=== PATIENT | female | born 1970 | race Caucasian/White ===

== ENCOUNTER 2017-03-23 11:41 | Emergency (ER) | payer SELFPAY ==
[2017-03-23 12:31] LABS: ABSOLUTE BASOPHILS # (AUTO) 0.1 10^3/uL (0.0-0.2); ABSOLUTE EOSINOPHILS # (AUTO) 0.2 10^3/uL (0.0-0.6); ABSOLUTE LYMPHOCYTES (AUTO) 2.5 10^3/uL (0.5-4.7); ABSOLUTE MONOCYTES (AUTO) 0.6 10^3/uL (0.1-1.4); ABSOLUTE NEUT (AUTO) 8.7 10^3/uL (1.7-8.2); BASOPHILS % (AUTO) 0.4 % (0-2); EOSINOPHILS % (AUTO) 1.5 % (0-6); HEMATOCRIT 36.6 % (36.0-47.0); HEMOGLOBIN 11.8 g/dL (12.0-15.5); HGB HCT DIFFERENCE -1.2; LYMPHOCYTES % (AUTO) 20.5 % (13-45); MEAN CORPUSCULAR HEMOGLOBIN 26.4 pg (27.0-33.4); MEAN CORPUSCULAR HGB CONC 32.2 g/dL (32.0-36.0); MEAN CORPUSCULAR VOLUME 82 fl (80-97); MONOCYTES % (AUTO) 5.3 % (3-13); RED BLOOD COUNT 4.47 10^6/uL (3.72-5.28); SEGMENTED NEUTROPHILS % (AUTO) 72.3 % (42-78); WHITE BLOOD COUNT 12.1 10^3/uL (4.0-10.5)
[2017-03-23 12:37] LABS: PARTIAL THROMBOPLASTIN TIME 27.7 SEC (23.5-35.8); PROTHROMBIN TIME 12.3 SEC (11.4-15.4)
[2017-03-23 12:53] LABS: ANION GAP 18 (5-19); BLOOD UREA NITROGEN 15 mg/dL (7-20); CARBON DIOXIDE 20 mmol/L (22-30); CHLORIDE 104 mmol/L (98-107); CREATININE RESULT 0.79 mg/dL (0.52-1.25); GLUCOSE 94 mg/dL (75-110); SODIUM 141.6 mmol/L (137-145)
[2017-03-23] MEDS ORDERED: NORMAL SALINE 1000 ML 1,000 ML IV ONE (13:09)
--- NOTE | 2017-03-23 14:18 | RADIOLOGY REPORT (SQ) ---
EXAM DESCRIPTION: U/S NON OB PEL W/DOPPLER COMPLETED DATE/TIME: 03/23/2017 1:54 pm REASON FOR STUDY: vaginal bleeding LMP uncertain COMPARISON: 08/15/2016 TECHNIQUE: Dynamic and static grayscale images acquired of the pelvis via transabdominal approach an d recorded on PACS. Additional selected color Doppler and spectral images recorded. LIMITATIONS: None. FINDINGS: UTERUS: Contour normal. No mass. ENDOMETRIAL STRIPE: Thickened. CERVIX: Nabothian cysts are present. RIGHT OVARY: Cysts are present. The largest is 2.6 cm in diameter. RIGHT OVARY DOPPLER: Normal arterial vascular flow without evidence for torsion. LEFT OVARY: Not seen. LEFT OVARY DOPPLER: Normal arterial vascular flow without evidence for torsion. FREE FLUID: None noted. OTHER: No other significant finding. MEASUREMENTS: UTERUS: 11.9 x 9 x 5 cm. ENDOMETRIAL STRIPE: 2.2 cm RIGHT OVARY: 4.4 x 3.2 x 2.7 cm LEFT OVARY: Not seen. IMPRESSION: 1. The endometrium is thickened. 2. There is a 2.6 cm right ovarian cyst. TECHNICAL DOCUMENTATION: JOB ID: [id number]- All Rights Reserved
[2017-03-23] MEDS ORDERED: MEDROXYPROGESTERONE ACET 10 MG TABLET PO ONE (14:39)
[2017-03-23] MEDS ORDERED: MECLIZINE HCL 25 MG TABLET PO ONE (14:47)
[2017-03-23 14:59] LABS: APPEARANCE,URINE CLOUDY; BILIRUBIN,URINE NEGATIVE (NEGATIVE); GLUCOSE, URINE NEGATIVE (NEGATIVE); KETONES,URINE NEGATIVE (NEGATIVE); LEUKOCYTE ESTERASE,URINE NEGATIVE (NEGATIVE); NITRITE,URINE NEGATIVE (NEGATIVE); PROTEIN,URINE 100 mg/dL (NEGATIVE); URINE SPECIFIC GRAVITY 1.014; UROBILINOGEN,URINE NEGATIVE mg/dL (<2.0)
--- NOTE | 2017-03-23 15:07 | ER Document Report ---
ED GI/ - General Chief Complaint: Vaginal Bleeding Stated Complaint: BLEEDING,SHORTNESS OF BREATH Time Seen by Provider: 03/23/17 12:03 TRAVEL OUTSIDE OF THE [place] IN LAST 30 DAYS: No - HPI Patient complains to provider of: Vaginal bleeding Onset: Other - 3 days Timing/Duration: Gradual, Worse - more clots Quality of pain: No pain Pain Level: Denies Vaginal bleeding (Compared to normal period): Heavier, Passing clots LMP: february : 8 Para: 5 Abortions: 3 Sexual history: Active - with Similar symptoms previously: Yes - previous uterine bleeding 08/15 requiring D& C with biopsy Recently seen / treated by doctor: Yes - follows with [facility] - Related Data Allergies/Adverse Reactions: aspirin Adverse Reaction (Verified 03/23/17 11:53) Past Medical History - Social History Smoking Status: Never Smoker Chew tobacco use (# tins/day): No Frequency of alcohol use: None Drug Abuse: None Family History: Other - She reports mother and sister both had history of heavy vaginal bleeding similar to hers which ultimately resulted in hysterectomies Patient has suicidal ideation: No Patient has homicidal ideation: No Pulmonary Medical History: Denies: Hx Asthma Renal/ Medical History: Denies: Hx Peritoneal Dialysis Psychiatric Medical History: Denies: Hx Depression Past Surgical History: Reports: Hx Section Review of Systems - Review of Systems Constitutional: No symptoms reported Cardiovascular: No symptoms reported Respiratory: No symptoms reported Female Genitourinary: See HPI Neurological/Psychological: Other - dizzy Physical Exam - Vital signs Vitals: Temp Pulse Resp BP Pulse Ox 98.3 F 102 H 26 H 118/70 99 03/23/17 11:48 03/23/17 11:48 03/23/17 11:48 03/23/17 11:48 03/23/17 11:48 - Notes Notes: PHYSICAL EXAM GENERAL: Alert, interacts well. HEAD: Normocephalic, atraumatic. Positive sundeep hallpike to the right EYES: Pupils equal, round, and reactive to light. Extraocular movements intact. ENT: Oral mucosa moist, tongue midline. NECK: Full range of motion. Supple. Trachea midline. LUNGS: Clear to auscultation bilaterally, no wheezes, rales, or rhonchi. No respiratory distress. HEART: Regular rate and rhythm. No murmurs, gallops, or rubs. ABDOMEN: Soft, nondistended, nontender. No guarding, rebound, or rigidity.. Bowel sounds present in all 4 quadrants. FEMALE : Normal external exam. No evidence of lesions, lacerations, bruising or vesicles. Speculum exam normal cervix closed. No evidence of vaginal discharge with odor. No evidence of lesions. Moderate dark blood pooling within the vaginal vault. Bimanual exam normal no cervical motion tenderness. No adnexal mass or adnexal tenderness. EXTREMITIES: Moves all 4 extremities spontaneously. No edema, radial and dorsalis pedis pulses 2/4 bilaterally. No cyanosis. NEUROLOGICAL: Alert and oriented x4. Normal speech. PSYCH: Normal affect, normal mood. SKIN: Warm, dry, normal turgor. No rashes or lesions noted. Course - Re-evaluation Re-evalutation: 03/23/17 14:00 Patient is a 46-year-old female hemodynamically stable, no acute distress and afebrile. H&H are stable at 11.8/36.6. Orthostatics stable. Patient received 1 L of saline as well as Antivert with complete resolution of her dizziness. Discussed case with Dr. Cordero who recommends Provera and follow-up with him in the office. After performing a Medical Screening Examination, I estimate there is LOW risk for ACUTE APPENDICITIS, BOWEL OBSTRUCTION, ACUTE CHOLECYSTITIS, PERFORATED DIVERTICULITIS, INCARCERATED HERNIA, PANCREATITIS, PELVIC INFLAMMATORY DISEASE, PERFORATED ULCER, ECTOPIC , or TUBO-OVARIAN ABSCESS, thus I consider the discharge disposition reasonable. Also, there is no evidence or peritonitis , sepsis, or toxicity. I have reevaluated this patient multiple times and no significant life threatening changes are noted. The patient and I have discussed the diagnosis and risks, and we agree with discharging home with close follow-up with the understanding that symptoms and presentations can change. We also discussed returning to the Emergency Department immediately if new or worsening symptoms occur. We have discussed the symptoms which are most concerning (e.g., bloody stool, fever, changing or worsening pain, vomiting) that necessitate immediate return. - Vital Signs Vital signs: Temp Pulse Resp BP Pulse Ox 98.2 F 69 12 106/67 100 03/23/17 16:19 03/23/17 13:06 03/23/17 16:00 03/23/17 16:00 03/23/17 16:00 - Laboratory Result Diagrams: 03/23/17 12:07 03/23/17 12:07 Laboratory results interpreted by me: 03/23/17 03/23/17 03/23/17 12:07 12:07 14:33 WBC 12.1 H Hgb 11.8 L MCH 26.4 L RDW 17.0 H Absolute Neutrophils 8.7 H Carbon Dioxide 20 L Urine Protein 100 H Urine Blood LARGE H - Diagnostic Test Radiology reviewed: Image reviewed, Reports reviewed Discharge - Discharge Clinical Impression: Dysfunctional uterine bleeding Condition: Good Disposition: HOME, SELF-CARE Additional Instructions: VAGINAL BLEEDING: You are having an episode of abnormal bleeding. Causes of abnormal vaginal bleeding can include miscarriage or tubal , tumors such as cancer or benign fibroids, medication effects, or hormone imbalance. Testing can eliminate unsuspected , tumors, or infection as a cause. "Dysfunctional uterine bleeding" is due to hormone imbalance, and is especially common at times when the normal cycle is disturbed -- whether by recent , use of control pills or hormones, or impending menopause. If the bleeding is innocent, most commonly a short course of hormones is given to restore the uterus to normal. Sometimes, the normal menstrual cycle corrects itself naturally. Sometimes , brief hormone therapy, or even a D&C is required. Your physician will advise you. Treatment for anemia may be required if bleeding is severe. You should rest and avoid intercourse until the bleeding is controlled. Call the doctor or return for re-examination if you feel faint, have increasing pain, or have a major increase in the amount of bleeding. NORMAL EXAM AND WORKUP: At this time, except for vaginal bleeding, your examination and workup show no significant abnormality. No significant abnormal physical findings were noted. All laboratory, EKG, and imaging (x-ray, CT scans, ultrasound) studies that were ordered show no significant abnormality. Although your examination and all studies that were ordered showed no significant abnormal finding, there are no examinations and no studies that are 100% accurate. There is always the possibility that some abnormality could exist and not be detected with physical examination or within the limits and capabilities of laboratory and other studies. You should return or follow up as you were instructed on your visit today for further evaluation if your symptoms do not resolve. PROVERA: Provera (medroxyprogesterone) is usually used to stop excessive uterine bleeding or to regulate the periods. Provera is a form of progesterone, the hormone that stimulates the uterus lining to mature during the second half of your cycle. High doses of Provera can usually stop uterine bleeding. It's most useful for the abnormal bleeding that occurs when periods are irregular, such as around menopause. Provera usually isn't helpful for bleeding that occurs after Depo-Provera or Norplant. There is often another heavy "period" when you finish the Provera. Afterwards, the periods usually return to normal within a month or two. Contact your doctor if bleeding becomes more severe, or if you develop abdominal pain, lightheadedness, fever, or other new symptoms. FOLLOW-UP CARE: If you have been referred to a physician for follow-up care, call the physician s office for an appointment as you were instructed or within the next two days. If you experience worsening or a significant change in your symptoms (very heavy bleeding with large clots of blood, passage of tissue, more severe abdominal / pelvic pain or cramping, feeling faint or severe weakness, fever, etc.), notify the physician immediately or return to the Emergency Department at any time for re-evaluation. Prescriptions: Meclizine HCl [Antivert 25 mg Tablet] 25 mg PO TID PRN #21 tablet PRN Reason: Medroxyprogesterone Acet [Provera 10 Mg Tablet] 10 mg PO DAILY #30 tablet Referrals: DANIEL CORDERO MD [Primary Care Provider] - Follow up in 1 week
[2017-03-23 16:05] VITALS: BP 106/67
== END 2017-03-23 16:18 | disposition home or self-care (01) ==
LOC: ER 11:41
DX: N93.8 Other specified abnormal uterine and vaginal bleeding (principal); R06.02 Shortness of breath
CPT/HCPCS: 99285; 96360; 86900; 86901; 36415; 86850; 84702; 85025; 85610; 85730; 80048; 81001; 76856; 93976; J3490; J7030

== ENCOUNTER → 2017-06-06 | Outpatient (CLI) | payer SELFPAY | LOC: HHS 08:55 | DX: Z12.31 Encounter for screening mammogram for malignant neoplasm of breast (principal) ==

== ENCOUNTER 2018-05-26 11:19 | Observation (INO) | payer SELFPAY ==
--- NOTE | 2018-05-26 12:14 | ER Document Report ---
ED Medical Screen (RME) - General Chief Complaint: Vaginal Bleeding Stated Complaint: VAGINAL BLEEDING Time Seen by Provider: 05/26/18 12:08 TRAVEL OUTSIDE OF THE [place] IN LAST 30 DAYS: No - HPI Patient complains to provider of: vaginal bleeding Onset: Other - 47-year-old female presents for evaluation of vaginal bleeding over the last 20+ days. She has had episodes of persistent vaginal bleeding in the past of an unknown etiology does not have known fibroids has had a ablation in the past as well as D&C with minimal improvement in her symptoms. She is lost insurance and as a result has not been able to see a powder core tester. Does not take any blood thinning medications has no known bleeding problems. Denies any trauma to the abdomen or pelvis generally has regular menses in between these episodes. Has tried Provera in the past which only modestly improved her symptoms. - Related Data Allergies/Adverse Reactions: aspirin Adverse Reaction (Verified 05/26/18 12:11) Past Medical History - Social History Chew tobacco use (# tins/day): No Frequency of alcohol use: None Drug Abuse: None Pulmonary Medical History: Denies: Hx Asthma Renal/ Medical History: Denies: Hx Peritoneal Dialysis Psychiatric Medical History: Denies: Hx Depression Past Surgical History: Reports: Hx Section, Hx Gynecologic Surgery - d& c Physical Exam - Vital signs Vitals: Temp Pulse Resp BP Pulse Ox 99.0 F 83 16 114/54 L 100 05/26/18 11:25 05/26/18 11:25 05/26/18 11:25 05/26/18 11:25 05/26/18 11:25 Course - Re-evaluation Re-evalutation: 05/26/18 12:13 47-year-old female with a history of abnormal uterine bleeding is persistently bled over the last 23 days, has required transfusion in the past. We will obtain type and screen, will obtain chemistry and count. Patient does appear pale. I performed a rapid medical screening examination on this patient, believe she will require some further investigation and evaluation will defer further testing or disposition determination to another provider. - Vital Signs Vital signs: Temp Pulse Resp BP Pulse Ox 99.0 F 83 16 114/54 L 100 05/26/18 11:25 05/26/18 11:25 05/26/18 11:25 05/26/18 11:25 05/26/18 11:25
[2018-05-26 13:04] LABS: HEMATOCRIT 17.7 % (36.0-47.0); MEAN CORPUSCULAR HEMOGLOBIN 18.7 pg (27.0-33.4); MEAN CORPUSCULAR HGB CONC 29.7 g/dL (32.0-36.0); MEAN CORPUSCULAR VOLUME 63 fl (80-97); PLATELET COUNT 359 10^3/uL (150-450); RED BLOOD COUNT 2.81 10^6/uL (3.72-5.28); RED CELL DISTRIBUTION WIDTH 18.2 % (11.5-14.0); WHITE BLOOD COUNT 6.9 10^3/uL (4.0-10.5)
[2018-05-26 13:08] LABS: INTERNATIONAL RATION (INR) 0.94
[2018-05-26 13:09] LABS: PARTIAL THROMBOPLASTIN TIME 23.6 SEC (23.5-35.8)
[2018-05-26 13:14] LABS: BLOOD UREA NITROGEN 9 mg/dL (7-20); CARBON DIOXIDE 22 mmol/L (22-30); CHLORIDE 106 mmol/L (98-107); GLUCOSE 91 mg/dL (75-110); SODIUM 139.4 mmol/L (137-145)
[2018-05-26 13:15] LABS: ALANINE AMINOTRANSFERASE 19 U/L (9-52); ALBUMIN 3.9 g/dL (3.5-5.0); ALKALINE PHOSPHATASE 64 U/L (38-126); ANION GAP 11 (5-19); ASPARTATE AMINO TRANSFERASE 19 U/L (14-36); BILIRUBIN,TOTAL 0.4 mg/dL (0.2-1.3)
[2018-05-26 13:16] LABS: HEMOGLOBIN 5.3 g/dL (12.0-15.5)
[2018-05-26 13:35] LABS: ABSOLUTE LYMPHOCYTES# (MANUAL) 1.9 10^3/uL (0.5-4.7); ABSOLUTE MONOCYTES # (MANUAL) 0.3 10^3/uL (0.1-1.4); ABSOLUTE NEUTROPHILS# (MANUAL) 4.6 10^3/uL (1.7-8.2); BASOPHILS % (MANUAL) 2 % (0-2); EOSINOPHILS % (MANUAL) 0 % (0-6); LYMPHOCYTES % (MANUAL) 27 % (13-45); MONOCYTES % (MANUAL) 5 % (3-13); SEGMENTED NEUTROPHILS % (MAN) 66 % (42-78); TOTAL CELLS COUNTED 100
[2018-05-26 13:36] LABS: ANISOCYTOSIS 2+; HYPOCHROMASIA 3+; OVALOCYTES 2+; PLATELET CLUMPS PRESENT; PLATELET COMMENT ADEQUATE; PLATELET GIANT PRESENT; PLATELET LARGE PRESENT; POIKILOCYTOSIS 2+; POLYCHROMASIA 2+; ROULEAUX SLIGHT; TOXIC GRANULATION 1+
[2018-05-26] MEDS ORDERED: NORMAL SALINE 250 ML IV PRN (13:57)
[2018-05-26] MEDS ORDERED: MEDROXYPROGESTERONE ACET INJ 150 MG/1 ML VIAL IM ONE (13:57)
--- NOTE | 2018-05-26 14:06 | ER Document Report ---
ED General - General Chief Complaint: Vaginal Bleeding Stated Complaint: VAGINAL BLEEDING Time Seen by Provider: 05/26/18 12:08 Mode of Arrival: Ambulatory Information source: Patient Notes: 47-year-old female presents emergency department complaints of vaginal bleeding for the last 3 weeks. Patient states that it started off as her normal menstrual cycle and persisted. She states that she is passing large clots. Patient states that she had similar symptoms in 2016 requiring a D&C and blood transfusion. Patient states that she has not followed up with an BEHAVIOR CLINICIAN since. Patient says that she's now becoming lightheaded. She denies chest pain, shortness of breath, abdominal pain. Patient denies being on blood thinners. TRAVEL OUTSIDE OF THE [place] IN LAST 30 DAYS: No - HPI Onset: Other - 3 weeks ago. Quality of pain: No pain Severity: None Pain Level: Denies Associated symptoms: Other - lightheadedness Exacerbated by: Denies Relieved by: Denies Similar symptoms previously: No Recently seen / treated by doctor: No - Related Data Allergies/Adverse Reactions: aspirin Adverse Reaction (Verified 05/26/18 12:11) Past Medical History - General Information source: Patient - Social History Smoking Status: Never Smoker Chew tobacco use (# tins/day): No Frequency of alcohol use: None Drug Abuse: None Family History: Reviewed & Not Pertinent, Other - She reports mother and sister both had history of heavy vaginal bleeding similar to hers which ultimately resulted in hysterectomies Patient has suicidal ideation: No Patient has homicidal ideation: No Pulmonary Medical History: Denies: Hx Asthma Renal/ Medical History: Denies: Hx Peritoneal Dialysis Psychiatric Medical History: Denies: Hx Depression Past Surgical History: Reports: Hx Section, Hx Gynecologic Surgery - d& c Review of Systems - Review of Systems Constitutional: No symptoms reported EENT: No symptoms reported Cardiovascular: Lightheaded Respiratory: No symptoms reported Gastrointestinal: No symptoms reported Genitourinary: No symptoms reported Female Genitourinary: Vaginal bleeding Musculoskeletal: No symptoms reported Skin: No symptoms reported Hematologic/Lymphatic: No symptoms reported Neurological/Psychological: No symptoms reported -: Yes All other systems reviewed and negative Physical Exam - Vital signs Vitals: Temp Pulse Resp BP Pulse Ox 99.0 F 83 16 114/54 L 100 05/26/18 11:25 05/26/18 11:25 05/26/18 11:25 05/26/18 11:25 05/26/18 11:25 - Notes Notes: PHYSICAL EXAMINATION: GENERAL: Pale appearing. HEAD: Atraumatic, normocephalic. EYES: Pupils equal round and reactive to light, extraocular movements intact, conjunctiva are normal. ENT: Nares patent, oropharynx clear without exudates. Moist mucous membranes. NECK: Normal range of motion, supple without lymphadenopathy LUNGS: Breath sounds clear to auscultation bilaterally and equal. No wheezes rales or rhonchi. HEART: Regular rate and rhythm without murmurs ABDOMEN: Soft, nontender, nondistended abdomen. No guarding, no rebound. No masses appreciated. Female : Bright red blood from cervical os. No cervical motion tenderness to palpation. Musculoskeletal: Normal range of motion, no pitting or edema. No cyanosis. NEUROLOGICAL: Cranial nerves grossly intact. Normal speech, normal gait. Normal sensory, motor exams PSYCH: Normal mood, normal affect. SKIN: Warm, Dry, normal turgor, no rashes or lesions noted. Course - Re-evaluation Re-evalutation: 05/26/18 14:11 I spoke with the [facility] [employer], Dr. samuel. She would like the patient started on Depo-Provera 400 mg IM and to obtain a pelvic ultrasound. 4 units of packed red blood cells ordered. Patient currently stable. - Vital Signs Vital signs: Temp Pulse Resp BP Pulse Ox 99.0 F 83 6 L 113/62 100 05/26/18 11:25 05/26/18 11:25 05/26/18 13:51 05/26/18 13:51 05/26/18 13:51 - Laboratory Result Diagrams: 05/26/18 12:34 05/26/18 12:34 Laboratory results interpreted by me: 05/26/18 05/26/18 12:34 14:09 RBC 2.81 L Hgb 5.3 L Hct 17.7 L MCV 63 L MCH 18.7 L MCHC 29.7 L RDW 18.2 H Crossmatch See Detail Discharge - Discharge Clinical Impression: Vaginal bleeding Anemia Qualifiers: Anemia type: unspecified type Qualified Code(s): D64.9 - Anemia, unspecified Condition: Stable Disposition: ADMITTED OBSERVATION Admitting Provider: [facility] Admitted: Medical Floor
--- NOTE | 2018-05-26 15:39 | PDOC H&P ---
History of Present Illness Admission Date/PCP: 05/26/18 14:33 Patient complains of: Heavy, prolonged vaginal bleeding History of Present Illness: RUPA REYES is a 47 year old presented to the emergency department complaining of heavy, prolonged bleeding, which started approximately 3 weeks ago. Patient stated that she has regular menstrual cycles which are not particularly heavy. However, last month, she only had spotting for menstrual cycle. She then began bleeding, which was heavy for 2 weeks. Then became light and then it became heavy once again. She stated that she had the same situation in 2016 and underwent a D&C, performed by Dr. Cordero. She stated that he wanted to perform an endometrial ablation on her , but she had no insurance at that time either. To her knowledge, she has no fibroids. She has history of a tubal ligation for contraception. Patient denies fever/chills and nausea/vomiting. She presented to the emergency department after her headache became severe and she felt very weak Past Medical History LMP: End april Menses: Regular menses with normal flow Gynecological Infection: No Obstetrical History: none - Patient is a , with 3 normal spontaneous vaginal deliveries and 2 deliveries via section Pulmonary Medical History: Denies: Asthma Psychiatric Medical History: Denies: Depression Past Surgical History Past Surgical History: 1. 2002 primary low transverse section- secondary to vaginal bleeding 2. 2009 repeat section with bilateral tubal ligation 3. 2015 D&C--secondary to heavy bleeding Past Surgical History: Reports: Section Social History Information Source: Patient Lives with: Family Smoking Status: Never Smoker Frequency of Alcohol Use: None Hx Recreational Drug Use: No Drugs: None Hx Prescription Drug Abuse: No Family History Family History: Reviewed & Not Pertinent, Other - She reports mother and sister both had history of heavy vaginal bleeding similar to hers which ultimately resulted in hysterectomies Parental Family History Reviewed: Yes Children Family History Reviewed: Yes Sibling(s) Family History Reviewed.: Yes Medication/Allergy Home Medications: No Home Medications 05/26/18 Allergies/Adverse Reactions: aspirin Adverse Reaction (Verified 05/26/18 12:11) Review of Systems Constitutional: PRESENT: headache(s) Cardiovascular: ABSENT: as per HPI, chest pain, dyspnea on exertion, edema, orthropnea, palpitations, other Respiratory: ABSENT: as per HPI, cough, dyspnea, hemoptysis, sputum, other Gastrointestinal: ABSENT: as per HPI, abdominal pain, bloating, coffee ground emesis, constipation, diarrhea, dysphagia, heartburn, hematemesis, hematochezia , melena, nausea, vomiting, other Neurological: ABSENT: as per HPI, abnormal gait, abnormal movements, abnormal speech, confusion, convulsions, dizziness, focal weakness, frequent falls, lack of coordination, memory loss, numbness, paresthesias, restless legs, syncope, tingling, tremor(s), vertigo, weakness, other Psychiatric: ABSENT: as per HPI, anxiety, depression, hallucinations, homidical ideation, suicidal ideation, other Physical Exam - Physical Exam Vital Signs: Temp Pulse Resp BP Pulse Ox 98.4 F 83 16 119/61 100 05/26/18 15:23 05/26/18 11:25 05/26/18 15:01 05/26/18 15:00 05/26/18 15:01 General appearance: PRESENT: no acute distress Respiratory exam: PRESENT: clear to auscultation sharon Cardiovascular exam: PRESENT: RRR - Tachycardia GI/Abdominal exam: PRESENT: normal bowel sounds, soft Psychiatric exam: ABSENT: agitated, anxious, appropriate affect, depressed, flat affect, homicidal ideation, manic, normal mood, suicidal ideation, unusual affect, other - Gynecological Exam Labia: normal Urethra: normal Introitus: normal Perineum: normal Vagina: normal, other - some clots evacuated by ED physician Cervix: normal Assessment & Plan - Diagnosis (1) Anemia Qualifiers: Anemia type: iron deficiency Iron deficiency anemia type: chronic blood loss Qualified Code(s): D50.0 - Iron deficiency anemia secondary to blood loss (chronic) Is this a current diagnosis for this admission?: Yes (2) Menorrhagia Qualifiers: Menorrahagia type: with irregular cycle Qualified Code(s): N92.1 - Excessive and frequent menstruation with irregular cycle Is this a current diagnosis for this admission?: Yes (3) Vaginal bleeding Is this a current diagnosis for this admission?: Yes - Plan Summary Plan Summary: Plan: 1. Admit 2. Blood transfusion of 4 units of packed red blood cells 3. Pelvic ultrasound 4. Depo-Provera 400 mg IM 5. Monitor closely
[2018-05-26] MEDS ORDERED: KETOROLAC TROMETHAMINE INJ/PF 30 MG/1 ML SDV IV PRN (15:41)
[2018-05-26] MEDS ORDERED: IBUPROFEN 800 MG TABLET PO PRN (15:41)
[2018-05-26] MEDS ORDERED: RINGERS SOLUTION,LACTATED 1,000 ML IV PRN (15:41)
--- NOTE | 2018-05-26 22:29 | RADIOLOGY REPORT (SQ) ---
US TRANSVAGINAL HISTORY: Vaginal bleeding. COMPARISON: None. TECHNIQUE: Grayscale, color Doppler, and spectral Doppler ultrasound images of the pelvis were obtained. FINDINGS: The uterus is anteverted and measures 11.3 x 8.2 x 5.2 cm. The endometrium measures 1 cm in thickness. Ovaries are not visualized on this study. Heterogeneous abdominal masses are seen adjacent to the uterus, measuring 2.4 x 2.0 x 2.2 cm and 4.6 x 4.1 x 4.8 cm. No free fluid is seen in the pelvis. IMPRESSION: Ovaries not seen. Enlarged uterus. 4.8 cm and 2.4 cm abdominal masses which may represent fibroids, endometriomas, or other entities. Consider cross-sectional imaging if clinically indicated.
[2018-05-27] MEDS ORDERED: DEXTROSE 40% GEL 15 GM TUBE PO PRN ×2 (02:49)
[2018-05-27] MEDS ORDERED: DEXTROSE 50%-WATER 25 GM/50 ML DISP.SYRIN IV PRN ×2 (02:49)
[2018-05-27] MEDS ORDERED: GLUCAGON,HUMAN RECOMB 1 MG INJ SUBCUT PRN (02:49)
--- NOTE | 2018-05-27 06:58 | PDOC PROGRESS REPORT ---
Subjective Progress Note for:: 05/27/18 Subjective:: Patient states that she feels better since her blood transfusion; headache has dissipated; now changing brian-pad every 4 hours. Patient denies chest pain, shortness of breath, fever/chills or nausea/vomiting Reason For Visit: VAGINAL BLEEDING, ANEMIA Physical Exam - Physical Exam Vital Signs: Temp Pulse Resp BP Pulse Ox 98.4 F 64 17 96/52 L 99 05/27/18 05:27 05/27/18 05:27 05/27/18 03:11 05/27/18 05:27 05/27/18 05:27 Intake & Output 05/25/18 05/26/18 05/27/18 06:59 06:59 06:59 Intake Total 1200 Balance 1200 General appearance: PRESENT: no acute distress Respiratory exam: PRESENT: clear to auscultation sharon Cardiovascular exam: PRESENT: RRR GI/Abdominal exam: PRESENT: normal bowel sounds, soft Extremities exam: ABSENT: calf tenderness, clubbing, full ROM, joint swelling, pedal edema, tenderness, +1 edema, +2 edema, other - Gynecological Exam Labia: normal Urethra: normal Introitus: normal Perineum: normal Vagina: normal, other - some clots evacuated by ED physician Cervix: normal Result Impressions: Transvaginal US 05/26/18 13:58 IMPRESSION: Ovaries not seen. Enlarged uterus. 4.8 cm and 2.4 cm abdominal masses which may represent fibroids, endometriomas, or other entities. Consider cross-sectional imaging if clinically indicated. Assessment & Plan - Diagnosis (1) Anemia Qualifiers: Anemia type: iron deficiency Iron deficiency anemia type: chronic blood loss Qualified Code(s): D50.0 - Iron deficiency anemia secondary to blood loss (chronic) Is this a current diagnosis for this admission?: Yes (2) Menorrhagia Qualifiers: Menorrahagia type: with irregular cycle Qualified Code(s): N92.1 - Excessive and frequent menstruation with irregular cycle Is this a current diagnosis for this admission?: Yes (3) Vaginal bleeding Is this a current diagnosis for this admission?: Yes (4) Fibroid uterus Is this a current diagnosis for this admission?: Yes - Plan Summary Plan Summary: Plan: 1. Status post Depo-Provera 400 mg IM x1 2. Status post transfusion of 4 units of packed red blood cells 3. Possible D&C today 4. Follow-up with [facility] in approximately 3 months--prescription given 5. Await morning CBC
[2018-05-27] MEDS ORDERED: MIDAZOLAM 2 MG/2 ML INJ ONE (07:02)
[2018-05-27] MEDS ORDERED: ONDANSETRON HCL INJ/PF 4 MG/2 ML SDV ONE (07:02)
[2018-05-27] MEDS ORDERED: FENTANYL CITRATE INJ/PF 100 MCG/2 ML AMPUL ONE (07:02)
[2018-05-27] MEDS ORDERED: PROPOFOL INJ 200 MG/20 ML VIAL IV ONE (07:03)
[2018-05-27 07:43] LABS: RED BLOOD COUNT 4.25 10^6/uL (3.72-5.28); WHITE BLOOD COUNT 9.5 10^3/uL (4.0-10.5)
[2018-05-27 07:44] LABS: HEMATOCRIT 30.4 % (36.0-47.0); HEMOGLOBIN 10.2 g/dL (12.0-15.5); MEAN CORPUSCULAR HGB CONC 33.6 g/dL (32.0-36.0); MEAN CORPUSCULAR VOLUME 72 fl (80-97); PLATELET COUNT 252 10^3/uL (150-450); RED CELL DISTRIBUTION WIDTH 23.5 % (11.5-14.0)
[2018-05-27] MEDS ORDERED: CEFAZOLIN INJ 1 GM VIAL ONE (07:57)
[2018-05-27] MEDS ORDERED: DIPHENHYDRAMINE HCL 50 MG/ML VIAL IV PRN (08:17)
[2018-05-27] MEDS ORDERED: MEPERIDINE HCL/PF INJ 25 MG/1 ML DISP.SYRIN IV PRN (08:17)
[2018-05-27] MEDS ORDERED: FENTANYL CITRATE INJ/PF 100 MCG/2 ML AMPUL IV PRN ×3 (08:17)
[2018-05-27] MEDS ORDERED: MORPHINE SULFATE 10 MG/ML INJ IV PRN (08:17)
[2018-05-27] MEDS ORDERED: PROMETHAZINE HCL INJ 25 MG/1 ML VIAL IV PRN (08:17)
[2018-05-27] MEDS ORDERED: DEXTROSE 5%-LACTATED RINGERS 1,000 ML IV PRN (08:43)
--- NOTE | 2018-05-27 08:46 | OPERATIVE REPORT E ---
Operative Report NAME: RUPA REYES : 1970 AGE: 47Y DATE OF SURGERY: 05/27/2018 ROOM: 209 PREOPERATIVE DIAGNOSIS: HYPERMENORRHEA WITH ANEMIA. POSTOPERATIVE DIAGNOSIS: HYPERMENORRHEA WITH ANEMIA. OPERATION: Suction dilation and curettage. SURGEON: Bruno MORGAN M.D. ANESTHESIA: General. ESTIMATED BLOOD LOSS: Less than 50 mL. TISSUE REMOVED OR ALTERED: Endometrium. PROCEDURE: The patient was placed in the dorsal lithotomy position, prepped and draped in sterile fashion. A speculum was placed. Cervix was visualized and grasped with a single-toothed tenaculum. Sounded to a depth of 12 cm. The os was dilated. A #8 catheter was then used for suction curettage followed by sharp curettage, followed by repeat suction with a minimal amount of tissue being recovered. The single-toothed tenaculum removed and hemostasis was noted. The patient was also noted to have multiple large fibroids on exam. The patient tolerated the procedure well and was taken to recovery room in good condition. DICTATING PHYSICIAN: Bruno MORGAN M.D. [id number] PHY#: [id number] ID: [id number] JOB#: [id number] ACCT: [id number] cc:Bruno MORGAN M.D. >
--- NOTE | 2018-05-27 09:11 | PDOC DISCHARGE SUMMARY ---
General - Admit/Disc Date/PCP Admission Date/Primary Care Provider: 05/26/18 14:33 Discharge Date: 05/27/18 - Discharge Diagnosis (1) Anemia Is this a current diagnosis for this admission?: Yes (2) Fibroid uterus Is this a current diagnosis for this admission?: Yes (3) Vaginal bleeding Is this a current diagnosis for this admission?: Yes (4) Menorrhagia Is this a current diagnosis for this admission?: Yes - Additional Information Resuscitation Status: Full Code Discharge Diet: As Tolerated Discharge Activity: Balance Activity w/Rest, Energy Conservation, No Lifting/ Push/Pulling, Pelvic Rest, No tub bath Home Medications: No Home Medications 05/26/18 History of Present Illness History of Present Illness: RUPA REYES is a 47 year old female Hospital Course Hospital Course: pt admitted with HGB of 5 and received 4 units PRBC and HGB now 10. Pt underwent a suction D&C and path is pending Now ready to be d/monse Physical Exam - Physical Exam Vital Signs: Temp Pulse Resp BP Pulse Ox 98.3 F 960 H 14 90/47 L 95 05/27/18 08:22 05/27/18 08:52 05/27/18 08:52 05/27/18 08:52 05/27/18 08:52 Intake & Output 05/26/18 05/27/18 05/28/18 06:59 06:59 06:59 Intake Total 1200 Balance 1200 General appearance: PRESENT: no acute distress Respiratory exam: PRESENT: clear to auscultation sharon GI/Abdominal exam: PRESENT: soft - Gynecological Exam Labia: normal Urethra: normal Introitus: normal Perineum: normal Vagina: normal, other - some clots evacuated by ED physician Cervix: normal Result Laboratory Results: 05/27/18 07:08 05/27/18 07:08 WBC 9.5 RBC 4.25 Hgb 10.2 L D Hct 30.4 L MCV 72 L D MCH 24.0 L MCHC 33.6 RDW 23.5 H Plt Count 252 Impressions: Transvaginal US 05/26/18 13:58 IMPRESSION: Ovaries not seen. Enlarged uterus. 4.8 cm and 2.4 cm abdominal masses which may represent fibroids, endometriomas, or other entities. Consider cross-sectional imaging if clinically indicated. Plan Discharge Plan: d/c f/u 1 week Time Spent: Less than 30 Minutes
[2018-05-27] MEDS ORDERED: IBUPROFEN 800 MG TABLET PO SCH (10:00)
[2018-05-27 11:30] LABS: PATH REVIEW PATHOLOGIST REVIEWED
[2018-05-27 15:34] VITALS: BP 106/67
[2018-05-27 17:35] LABS: ABSOLUTE BASOPHILS # (AUTO) 0.1 10^3/uL (0.0-0.2); ABSOLUTE EOSINOPHILS # (AUTO) 0.2 10^3/uL (0.0-0.6); ABSOLUTE LYMPHOCYTES (AUTO) 2.4 10^3/uL (0.5-4.7); ABSOLUTE MONOCYTES (AUTO) 0.5 10^3/uL (0.1-1.4); ABSOLUTE NEUT (AUTO) 7.3 10^3/uL (1.7-8.2); BASOPHILS % (AUTO) 0.8 % (0-2); EOSINOPHILS % (AUTO) 1.4 % (0-6); HEMATOCRIT 29.5 % (36.0-47.0); HEMOGLOBIN 9.7 g/dL (12.0-15.5); LYMPHOCYTES % (AUTO) 22.8 % (13-45); MEAN CORPUSCULAR HEMOGLOBIN 23.8 pg (27.0-33.4); MEAN CORPUSCULAR HGB CONC 33.1 g/dL (32.0-36.0); MEAN CORPUSCULAR VOLUME 72 fl (80-97); PLATELET COUNT 244 10^3/uL (150-450); RED BLOOD COUNT 4.09 10^6/uL (3.72-5.28); RED CELL DISTRIBUTION WIDTH 23.1 % (11.5-14.0); TOTAL CELLS COUNTED % (AUTO) 100 %; WHITE BLOOD COUNT 10.5 10^3/uL (4.0-10.5)
== END 2018-05-27 18:15 | disposition home or self-care (01) ==
LOC: ER 11:19 → EH 14:33 → 2N 15:45
PROVIDERS: ADMIT Specialist; ATTEND Specialist
PROC: 30233N1 Transfusion of Nonautologous Red Blood Cells into Peripheral Vein, Percutaneous Approach (ICD-10-PCS; principal; 2018-05-26)
PROC: 30233N1 Transfusion of Nonautologous Red Blood Cells into Peripheral Vein, Percutaneous Approach (ICD-10-PCS; 2018-05-27)
PROC: 0UDB7ZX Extraction of Endometrium, Via Natural or Artificial Opening, Diagnostic (ICD-10-PCS; 2018-05-27)
DX: D50.0 Iron deficiency anemia secondary to blood loss (chronic) (principal); D25.9 Leiomyoma of uterus, unspecified; N92.0 Excessive and frequent menstruation with regular cycle; N93.9 Abnormal uterine and vaginal bleeding, unspecified; Z98.51 Tubal ligation status; Z98.890 Other specified postprocedural states; Z84.2 Family history of other diseases of the genitourinary system
CPT/HCPCS: 86900; 86901; 36415 ×2; 36430; 86850; 84703; 85025 ×2; 85027; 85610; 85730; 80053; 86920; 88305 ×2; 76830; 58120; G0378 ×3; P9016 ×2; J2250; J0690; J3010; J1050; J2405; J7120; J2704

== ENCOUNTER 2019-10-01 10:49 | Observation (INO) | payer SELFPAY ==
--- NOTE | 2019-10-01 11:07 | ER Document Report ---
ED Medical Screen (RME) - General Chief Complaint: Hemorrhoids Stated Complaint: HEMORROID Time Seen by Provider: 10/01/19 11:03 Notes: 49 y/o female with history of hemorrhoids presents for worsening pain/hemorrhoid since yesterday. Pt states she felt swelling and pain after intercourse with her . States it became black/blue and has been draining blood ever since. Pt has had to wear pads. Very swollen hemorrhoid seen with active bleeding. Denies this ever occurring previously or requiring surgery for hemorrhoids. I have greeted and performed a rapid initial assessment of this patient. A comprehensive ED assessment and evaluation of the patient, analysis of test results and completion of the medical decision making process with be conducted by additional ED providers. TRAVEL OUTSIDE OF THE [place] IN LAST 30 DAYS: No - Related Data Allergies/Adverse Reactions: aspirin Adverse Reaction (Verified 05/26/18 12:11) Past Medical History Pulmonary Medical History: Denies: Hx Asthma Renal/ Medical History: Denies: Hx Peritoneal Dialysis Psychiatric Medical History: Denies: Hx Depression Past Surgical History: Reports: Hx Section, Hx Gynecologic Surgery - d&c Physical Exam - Vital signs Vitals: Temp Pulse Resp BP Pulse Ox 98 F 73 18 147/84 H 99 10/01/19 10:54 10/01/19 10:54 10/01/19 10:54 10/01/19 10:54 10/01/19 10:54 Course - Vital Signs Vital signs: Temp Pulse Resp BP Pulse Ox 98 F 73 18 147/84 H 99 10/01/19 10:54 10/01/19 10:54 10/01/19 10:54 10/01/19 10:54 10/01/19 10:54
[2019-10-01 11:35] LABS: ABSOLUTE EOSINOPHILS # (AUTO) 0.1 10^3/uL (0.0-0.6); ABSOLUTE MONOCYTES (AUTO) 0.5 10^3/uL (0.1-1.4); ABSOLUTE NEUT (AUTO) 5.6 10^3/uL (1.7-8.2); BASOPHILS % (AUTO) 0.4 % (0-2); EOSINOPHILS % (AUTO) 0.9 % (0-6); HEMATOCRIT 43.4 % (36.0-47.0); HEMOGLOBIN 14.7 g/dL (12.0-15.5); LYMPHOCYTES % (AUTO) 24.9 % (13-45); MEAN CORPUSCULAR HEMOGLOBIN 30.1 pg (27.0-33.4); MEAN CORPUSCULAR HGB CONC 33.8 g/dL (32.0-36.0); MEAN CORPUSCULAR VOLUME 89 fl (80-97); MONOCYTES % (AUTO) 5.7 % (3-13); PLATELET COUNT 270 10^3/uL (150-450); RED BLOOD COUNT 4.87 10^6/uL (3.72-5.28); RED CELL DISTRIBUTION WIDTH 13.1 % (11.5-14.0); SEGMENTED NEUTROPHILS % (AUTO) 68.1 % (42-78); TOTAL CELLS COUNTED % (AUTO) 100 %; WHITE BLOOD COUNT 8.2 10^3/uL (4.0-10.5)
[2019-10-01 11:58] LABS: ALBUMIN 4.8 g/dL (3.5-5.0); ALKALINE PHOSPHATASE 91 U/L (38-126); ANION GAP 7 (5-19); ASPARTATE AMINO TRANSFERASE 24 U/L (14-36); BILIRUBIN,TOTAL 0.8 mg/dL (0.2-1.3); BLOOD UREA NITROGEN 12 mg/dL (7-20); CALCIUM 9.6 mg/dL (8.4-10.2); CARBON DIOXIDE 25 mmol/L (22-30); CHLORIDE 107 mmol/L (98-107); GLUCOSE 100 mg/dL (75-110); POTASSIUM 4.4 mmol/L (3.6-5.0); TOTAL PROTEIN 8.4 g/dL (6.3-8.2)
--- NOTE | 2019-10-01 13:31 | ER Document Report ---
ED General - General Chief Complaint: Hemorrhoids Stated Complaint: HEMORROID Time Seen by Provider: 10/01/19 11:03 Notes: Patient is a 49-year-old white female with a past medical history of chronic hemorrhoids who presents to the emergency department today with a chief complaint of worsening hemorrhoids that began last night. She states she is always had a large degree of hemorrhoids that have never bothered her much. She reports last night that began to worsen. She states she felt areas of bulging that were very tender and painful. She states she cannot find a comfortable position or sit down. She states she felt the area and had her look. She states every tender hard and purple in color. She denies any numbness ting ling or weakness. She denies any constipation or diarrhea. She denies any abdominal pain or fever. TRAVEL OUTSIDE OF THE [place] IN LAST 30 DAYS: No - Related Data Allergies/Adverse Reactions: aspirin Adverse Reaction (Verified 10/01/19 11:06) Past Medical History - Social History Smoking Status: Unknown if Ever Smoked Chew tobacco use (# tins/day): No Frequency of alcohol use: None Drug Abuse: None Family History: Reviewed & Not Pertinent, Other - She reports mother and sister both had history of heavy vaginal bleeding similar to hers which ultimately resu lted in hysterectomies Patient has suicidal ideation: No Patient has homicidal ideation: No Pulmonary Medical History: Denies: Hx Asthma Renal/ Medical History: Denies: Hx Peritoneal Dialysis Psychiatric Medical History: Denies: Hx Depression Past Surgical History: Reports: Hx Section, Hx Gynecologic Surgery - d&c Review of Systems - Review of Systems Genitourinary: Other - Hemorrhoids, anal pain -: Yes All other systems reviewed and negative Physical Exam - Vital signs Vitals: Temp Pulse Resp BP Pulse Ox 98 F 73 18 147/84 H 99 10/01/19 10:54 10/01/19 10:54 10/01/19 10:54 10/01/19 10:54 10/01/19 10:54 - General General appearance: Appears well, Alert In distress: None - Respiratory Respiratory status: No respiratory distress Chest status: Nontender Breath sounds: Normal Chest palpation: Normal - Cardiovascular Rhythm: Regular Heart sounds: Normal auscultation - Abdominal Inspection: Normal Distension: No distension Bowel sounds: Normal Tenderness: Nontender Organomegaly: No organomegaly - Rectal Tenderness: Yes Hemorrhoids: External, Other - Large thrombosed external hemorrhoids from the 3 :00 to 9 o'clock position with nonthrombosed hemorrhoids the remainder of the external anus with a mild degree of rectal prolapse Notes: Chaperoned by female nurse - Neurological Neuro grossly intact: Yes Cognition: Normal Orientation: AAOx4 Neli Coma Scale Eye Opening: Spontaneous Neli Coma Scale Verbal: Oriented Neli Coma Scale Motor: Obeys Commands Neli Coma Scale Total: 15 Speech: Normal - Psychological Associated symptoms: Normal affect, Normal mood - Skin Skin Temperature: Warm Skin Moisture: Dry Skin Color: Normal Course - Re-evaluation Re-evalutation: 10/01/19 13:[address] Tom, general surgeon regarding the severity of the patient's thrombosed external hemorrhoids. He advised he will come to the emergency department to evaluate. 10/01/19 14:19 Dr. Tom to bedside, evaluated the patient and recommended surgical interv ention. The patient will remain n.p.o. at this time. Her last oral intake was before [address] Tom will take her to the operating room at this time. - Vital Signs Vital signs: Temp Pulse Resp BP Pulse Ox 98 F 73 18 147/84 H 99 10/01/19 10:54 10/01/19 10:54 10/01/19 10:54 10/01/19 10:54 10/01/19 10:54 - Laboratory Result Diagrams: 10/01/19 11:21 10/01/19 11:21 Laboratory results interpreted by me: 10/01/19 11:21 Total Protein 8.4 H Discharge - Discharge Clinical Impression: Thrombosed hemorrhoids Condition: Stable Disposition: ADMITTED OBSERVATION Admitting Provider: Dr. Tom Unit Admitted: OR
--- NOTE | 2019-10-01 14:58 | PDOC H&P ---
History of Present Illness Patient complains of: Perirectal pain and swelling. Thrombosed hemorrhoids. History of Present Illness: RUPA REYES is a 49 year old female with a 1 day history of perirectal pain and swelling. Patient has a history of hemorrhoids in the past, caused by her previous pregnancies. She reports that after using the bathroom, she noticed pain and swelling around her rectum that was severe. The pain and swelling have worsened. She has also noted some bleeding. She denies chest pain, shortness of breath, fevers, chills, nausea, vomiting, headache, dizziness, orthostasis, fatigue. Movement and palpation make her pain worse. Nothing makes it better. Past Medical History Pulmonary Medical History: Denies: Asthma Psychiatric Medical History: Denies: Depression Hematology: Reports: Anemia - Iron deficient Past Surgical History Past Surgical History: Reports: Section Social History Smoking Status: Unknown if Ever Smoked Electronic Cigarette use?: No Frequency of Alcohol Use: None Hx Recreational Drug Use: No Drugs: None Hx Prescription Drug Abuse: No Family History Family History: Reviewed & Not Pertinent, Other - She reports mother and sister both had history of heavy vaginal bleeding similar to hers which ultimately resu lted in hysterectomies Parental Family History Reviewed: Yes Children Family History Reviewed: Yes Sibling(s) Family History Reviewed.: Yes Medication/Allergy Home Medications: Medroxyprogesterone Acet [Provera 10 Mg Tablet] 30 mg PO DAILY 10/01/19 Allergies/Adverse Reactions: aspirin Adverse Reaction (Verified 10/01/19 11:06) Review of Systems Constitutional: ABSENT: anorexia Eyes: ABSENT: visual disturbances Ears: ABSENT: hearing changes Nose, Mouth, and Throat: ABSENT: sore throat Cardiovascular: ABSENT: chest pain Respiratory: ABSENT: cough Gastrointestinal: PRESENT: other - Perirectal pain and swelling. Thrombosed external hemorrhoid.. ABSENT: abdominal pain Genitourinary: ABSENT: dysuria Musculoskeletal: ABSENT: back pain Integumentary: ABSENT: pruritus, rash Neurological: ABSENT: confusion, convulsions, dizziness, paresthesias, weakness Psychiatric: ABSENT: anxiety, depression Endocrine: ABSENT: cold intolerance Hematologic/Lymphatic: ABSENT: easy bleeding, easy bruising Physical Exam Vital Signs: Temp Pulse Resp BP Pulse Ox 98 F 73 18 147/84 H 99 10/01/19 10:54 10/01/19 10:54 10/01/19 10:54 10/01/19 10:54 10/01/19 10:54 Intake & Output 09/30/19 10/01/19 10/02/19 06:59 06:59 06:59 Weight 56.6 kg General appearance: PRESENT: cooperative Head exam: PRESENT: atraumatic, normocephalic Eye exam: PRESENT: EOMI, PERRLA. ABSENT: scleral icterus Mouth exam: PRESENT: moist Neck exam: ABSENT: meningismus, tenderness, thyromegaly, tracheal deviation Respiratory exam: PRESENT: unlabored. ABSENT: tachypnea, wheezes Cardiovascular exam: PRESENT: RRR Pulses: PRESENT: normal radial pulses Vascular exam: PRESENT: normal capillary refill. ABSENT: pallor GI/Abdominal exam: PRESENT: soft. ABSENT: tenderness Rectal exam: PRESENT: hemorrhoids - Large, thrombosed external hemorrhoid in the right anterior position. Extremities exam: ABSENT: clubbing Musculoskeletal exam: ABSENT: deformity Neurological exam: PRESENT: alert, awake, oriented to person, oriented to place, oriented to time, oriented to situation, CN II-XII grossly intact. ABSENT: motor sensory deficit Psychiatric exam: ABSENT: agitated, anxious, depressed Focused psych exam: ABSENT: delusional Skin exam: ABSENT: cyanosis, erythema, jaundice Results Laboratory Results: 10/01/19 11:21 10/01/19 11:21 10/01/19 10/01/19 11:21 11:21 WBC 8.2 RBC 4.87 Hgb 14.7 Hct 43.4 MCV 89 MCH 30.1 MCHC 33.8 RDW 13.1 Plt Count 270 Seg Neutrophils % 68.1 Sodium 139.4 Potassium 4.4 Chloride 107 Carbon Dioxide 25 Anion Gap 7 BUN 12 Creatinine 0.80 Est GFR ( Amer) > 60 Glucose 100 Calcium 9.6 Total Bilirubin 0.8 AST 24 Alkaline Phosphatase 91 Total Protein 8.4 H Albumin 4.8 Assessment & Plan - Diagnosis (1) Thrombosed hemorrhoids Is this a current diagnosis for this admission?: Yes - Plan Summary Plan Summary: This is a 49-year-old female with enlarged, thrombosed external hemorrhoids. The patient reports significant pain and bleeding. On examination, her hemorrhoids are very large. I do not believe incision and drainage is an option for her. I have offered her hemorrhoidectomy in order to improve her symptoms. She has agreed to this. Risks/benefits discussed, informed consent obtained, a nd all questions answered.
[2019-10-01] MEDS ORDERED: FENTANYL CITRATE INJ/PF 100 MCG/2 ML AMPUL ONE (15:11)
[2019-10-01] MEDS ORDERED: MIDAZOLAM 2 MG/2 ML INJ ONE (15:12)
[2019-10-01] MEDS ORDERED: PROPOFOL INJ 200 MG/20 ML VIAL IV ONE (15:12)
[2019-10-01] MEDS ORDERED: FENTANYL CITRATE INJ/PF 100 MCG/2 ML AMPUL IV ONE (15:16)
[2019-10-01] MEDS ORDERED: BACITRACIN ZINC OINTMENT 15 GM ONE (15:25)
[2019-10-01] MEDS ORDERED: LIDOCAINE 2% JELLY 30 ML TUBE ONE (15:25)
[2019-10-01] MEDS ORDERED: BUPIVACAINE INJ/PF LIPOSOME/PF 266 MG/20 ML SDV ONE (15:25)
[2019-10-01] MEDS ORDERED: METRONIDAZOLE 500 MG/NS RTU 500 MG/100 ML RTUPB IV ONE (15:46)
[2019-10-01] MEDS ORDERED: FENTANYL CITRATE INJ/PF 100 MCG/2 ML AMPUL IV PRN ×3 (16:06)
[2019-10-01] MEDS ORDERED: PROMETHAZINE HCL INJ 25 MG/1 ML VIAL IV PRN ×2 (16:06)
[2019-10-01] MEDS ORDERED: MORPHINE SULFATE 10 MG/ML INJ IV PRN (16:06)
[2019-10-01] MEDS ORDERED: MEPERIDINE HCL/PF INJ 25 MG/1 ML DISP.SYRIN IV PRN (16:06)
[2019-10-01] MEDS ORDERED: DIPHENHYDRAMINE HCL 50 MG/ML VIAL IV PRN (16:06)
[2019-10-01] MEDS ORDERED: LIDOCAINE 2% JELLY 30 ML TUBE MM ONE (16:21)
--- NOTE | 2019-10-01 16:47 | Operative Report ---
Nonrecallable Operative Report DATE OF SURGERY: 10/01/19 PREOPERATIVE DIAGNOSIS: Thrombosed external and internal hemorrhoids in the right anterior position. POSTOPERATIVE DIAGNOSIS: Same as above OPERATION: Excision of right anterior internal and external thrombosed hemo rrhoids. SURGEON: ALBER ROSARIO ANESTHESIA: LMAC TISSUE REMOVED OR ALTERED: Right anterior thrombosed internal and external hemorrhoid. COMPLICATIONS: None apparent ESTIMATED BLOOD LOSS: Minimal PROCEDURE: Drains/implants: None. Procedure in detail: After informed consent was obtained, the patient was brought to the operating room and laid in the prone jackknife position. The area of the anus and rectum were prepped and draped in a normal sterile fashion. An anal block was created with Exparel. A Bovie was used to excise the large, thrombosed, internal/external right anterior hemorrhoid. It was excised down to the musculature, without damaging or involving the musculature. The resulting defect was closed using 3-0 chromic suture in simple running fashion. After the defect was closed, the anus was inspected. There is no other thrombosed hemorrhoidal tissue (the right posterior and left lateral positions appeared normal). A dressing was then placed, and the procedure was concluded. All sponge, instrument, needle counts were correct x2. Condition: Stable.
[2019-10-01] MEDS ORDERED: KETOROLAC TROMETHAMINE INJ/PF 30 MG/1 ML SDV ONE (16:48)
[2019-10-01] MEDS ORDERED: ACETAMINOPHEN 1,000 MG/100 ML RTUPB IV ONE (16:48)
--- NOTE | 2019-10-01 16:56 | PDOC DISCHARGE SUMMARY ---
General - Admit/Disc Date/PCP Admission Date/Primary Care Provider: 10/01/19 15:03 Discharge Date: 10/01/19 - Discharge Diagnosis Final Diagnosis: Thrombosed internal/external hemorrhoids in the right anterior position. - Assessment Summary: This a 49-year-old female admitted to the hospital with thrombosed internal and external hemorrhoids. Patient was taken to the operating room, where excision of her thrombosed hemorrhoids were performed. The patient did well after surgery. She awoke, and her pain was controlled. At this time it is felt that she has reached maximal hospital benefit, and is fit for discharge. - Additional Information Resuscitation Status: Full Code Discharge Diet: As Tolerated Discharge Activity: Balance Activity w/Rest, No Lifting Over 10 Pounds, No Lifting/Push/Pulling Referrals: ALBER ROSARIO MD [ACTIVE STAFF] - Prescriptions: Lidocaine/Transparent Dressing [Lidocaine 4% Kit] 1 each TP TID #90 kit Ibuprofen [Motrin 800 mg Tablet] 800 mg PO MEALS #42 tablet Hydrocodone/Acetaminophen [[place] 10-325 mg Tablet] 1 tab PO Q6HP PRN #28 tablet PRN Reason: For Pain Home Medications: Hydrocodone/Acetaminophen [[place] 10-325 mg Tablet] 1 tab PO Q6HP PRN #28 tablet 10/01/19 Ibuprofen [Motrin 800 mg Tablet] 800 mg PO MEALS #42 tablet 10/01/19 Lidocaine/Transparent Dressing [Lidocaine 4% Kit] 1 each TP TID #90 kit 10/01/19 Additional Information: Discharge home. Diet as tolerated. Activity: Nonstrenuous. Follow-up with me in 7 to 10 days at [facility]. Warm sits baths in soapy water 3 times daily and after bowel movements. Apply bacitracin and lidocaine ointment to rectum 3 times daily. Ibuprofen 800 mg p.o. 3 times daily with meals. Hydrocodone 10/325 mg p.o. every 6 hours PRN for pain. History of Present Illiness History of Present Illness: RUPA REYES is a 49 year old female with a 1 day history of perirectal pain and swelling. Patient has a history of hemorrhoids in the past, caused by her previous pregnancies. She reports that after using the bathroom, she noticed pain and swelling around her rectum that was severe. The pain and swelling have worsened. She has also noted some bleeding. She denies chest pain, shortness of breath, fevers, chills, nausea, vomiting, headache, dizziness, orthostasis, fatigue. Movement and palpation make her pain worse. Nothing makes it better. Physical Exam Vital Signs: Temp Pulse Resp BP Pulse Ox 98.1 F 80 18 140/78 H 99 10/01/19 14:00 10/01/19 14:00 10/01/19 14:00 10/01/19 14:00 10/01/19 14:00 Intake & Output 09/30/19 10/01/19 10/02/19 06:59 06:59 06:59 Weight 56.6 kg Results Laboratory Results: WBC 8.2 10^3/uL (4.0-10.5) 10/01/19 11:21 RBC 4.87 10^6/uL (3.72-5.28) 10/01/19 11:21 Hgb 14.7 g/dL (12.0-15.5) 10/01/19 11:21 Hct 43.4 % (36.0-47.0) 10/01/19 11:21 MCV 89 fl (80-97) 10/01/19 11:21 MCH 30.1 pg (27.0-33.4) 10/01/19 11:21 MCHC 33.8 g/dL (32.0-36.0) 10/01/19 11:21 RDW 13.1 % (11.5-14.0) 10/01/19 11:21 Plt Count 270 10^3/uL (150-450) 10/01/19 11:21 Lymph % (Auto) 24.9 % (13-45) 10/01/19 11:21 [place] % (Auto) 5.7 % (3-13) 10/01/19 11:21 Eos % (Auto) 0.9 % (0-6) 10/01/19 11:21 Baso % (Auto) 0.4 % (0-2) 10/01/19 11:21 Absolute Neuts (auto) 5.6 10^3/uL (1.7-8.2) 10/01/19 11:21 Absolute Lymphs (auto) 2.0 10^3/uL (0.5-4.7) 10/01/19 11:21 Absolute Monos (auto) 0.5 10^3/uL (0.1-1.4) 10/01/19 11:21 Absolute Eos (auto) 0.1 10^3/uL (0.0-0.6) 10/01/19 11:21 Absolute Basos (auto) 0.0 10^3/uL (0.0-0.2) 10/01/19 11:21 Seg Neutrophils % 68.1 % (42-78) 10/01/19 11:21 Sodium 139.4 mmol/L (137-145) 10/01/19 11:21 Potassium 4.4 mmol/L (3.6-5.0) 10/01/19 11:21 Chloride 107 mmol/L (98-107) 10/01/19 11:21 Carbon Dioxide 25 mmol/L (22-30) 10/01/19 11:21 Anion Gap 7 (5-19) 10/01/19 11:21 BUN 12 mg/dL (7-20) 10/01/19 11:21 Creatinine 0.80 mg/dL (0.52-1.25) 10/01/19 11:21 Est GFR ( Amer) > 60 (>60) 10/01/19 11:21 Est GFR (MDRD) Non-Af > 60 (>60) 10/01/19 11:21 Glucose 100 mg/dL (75-110) 10/01/19 11:21 Calcium 9.6 mg/dL (8.4-10.2) 10/01/19 11:21 Total Bilirubin 0.8 mg/dL (0.2-1.3) 10/01/19 11:21 Direct Bilirubin 0.0 mg/dL (0.0-0.4) 10/01/19 11:21 Neonat Total Bilirubin Not Reportable 10/01/19 11:21 Neonat Direct Bilirubin Not Reportable 10/01/19 11:21 Neonat Indirect Bili Not Reportable 10/01/19 11:21 AST 24 U/L (14-36) 10/01/19 11:21 ALT 13 U/L (<35) 10/01/19 11:21 Alkaline Phosphatase 91 U/L (38-126) 10/01/19 11:21 Total Protein 8.4 g/dL (6.3-8.2) H 10/01/19 11:21 Albumin 4.8 g/dL (3.5-5.0) 10/01/19 11:21 Urine HCG, Qual NEGATIVE (NEGATIVE) 10/01/19 15:10
[2019-10-01] MEDS: IBUPROFEN 800 MG TABLET PO SCH (19:12)
[2019-10-01] MEDS: HYDROCODONE/ACETAMINOPHEN 10-325 MG TABLET PO PRN (20:53)
[2019-10-02] MEDS: HYDROCODONE/ACETAMINOPHEN 10-325 MG TABLET PO PRN (05:48)
[2019-10-02] MEDS: IBUPROFEN 800 MG TABLET PO SCH (08:03)
[2019-10-02 08:41] VITALS: BP 97/36
== END 2019-10-02 09:20 | disposition home or self-care (01) ==
LOC: ER 10:49 → EH 15:03 → 5 17:30
PROVIDERS: ADMIT Surgery; ATTEND Surgery
DX: K64.5 Perianal venous thrombosis (principal); Z79.3 Long term (current) use of hormonal contraceptives
CPT/HCPCS: 46255; 46999; 99284; 96374; 36415; 85025; 81025; 80053; 88304 ×2; 00902; J2250; J3490 ×2; J3010; J1885; J2704; J0131; C9290; 902

== ENCOUNTER 2020-04-01 11:43 | Emergency (ER) | payer MEDICAID ==
[2020-04-01] MEDS ORDERED: OXYCODONE-ACETAMINOPHEN 5-325 MG TABLET PO ONE (11:52)
--- NOTE | 2020-04-01 11:53 | ER Document Report ---
ED Medical Screen (RME) - General Chief Complaint: Wrist Injury Stated Complaint: FALL,RIGHT ARM INJURY Time Seen by Provider: 04/01/20 11:52 Mode of Arrival: Ambulatory Information source: Patient Notes: 49-year-old female presents to ED for obvious deformity to the right wrist. She states she was at home about 20 minutes ago when she was horsing around slipped because wearing socks fell on her outstretched arm injuring her right wrist. Patient is alert oriented respirations regular nonlabored speaking in full sentences. I have treated her with some Percocet she will get x-ray she has an ice pack and elevate her wrist and she will be seen by another provider. I have greeted and performed a rapid initial assessment of this patient. A comprehensive ED assessment and evaluation of the patient, analysis of test results and completion of medical decision making process will be conducted by an additional ED providers. TRAVEL OUTSIDE OF THE [place] IN LAST 30 DAYS: No - Related Data Allergies/Adverse Reactions: aspirin Adverse Reaction (Verified 04/01/20 11:52) Past Medical History Pulmonary Medical History: Denies: Hx Asthma Renal/ Medical History: Denies: Hx Peritoneal Dialysis Psychiatric Medical History: Denies: Hx Depression Past Surgical History: Reports: Hx Section, Hx Gynecologic Surgery - d&c, Hx Tubal Ligation - Immunizations Hx Diphtheria, Pertussis, Tetanus Vaccination: Yes Physical Exam - Vital signs Vitals: Temp Pulse Resp BP Pulse Ox 98.0 F 65 18 109/63 100 04/01/20 11:49 04/01/20 11:49 04/01/20 11:49 04/01/20 11:49 04/01/20 11:49 Course - Vital Signs Vital signs: Temp Pulse Resp BP Pulse Ox 98.0 F 65 18 109/63 100 04/01/20 11:49 04/01/20 11:49 04/01/20 11:49 04/01/20 11:49 04/01/20 11:49
--- NOTE | 2020-04-01 12:12 | ER Document Report ---
ED Hand/Wrist Injury - General Chief Complaint: Wrist Injury Stated Complaint: FALL,RIGHT ARM INJURY Time Seen by Provider: 04/01/20 11:52 Mode of Arrival: Ambulatory Information source: Patient Notes: 04/01/20 12:00 - ED Nursing Note by PRIYA URIARTE Num: [id number] : 1970 Patient Age: 49 pt reports she was playing around in the kitchen while cooking breakfast. states had on socks and slipped and fell. positive deformity noted to the right wrist. wrist splinted. pillow provided and ice pack provided. pt medicated per provider order. pt taken to x ray. pt is alert and oriented. resp are even and unlabored. my notes I discussed this case with Dr. Jerry Atwood at 1225 and he will evaluate the x- ray. 49-year-old female arrives with obvious deformity to right wrist with fracture of distal radius on x-ray. Patient reports she was in the kitchen with and ingested that it would be tough for her to kick his but and she attempted To kick him but fell down placing out her right hand and took the brunt on the floor with her right forearm. She complains of pain in her right wrist as well as pain shooting to her right elbow. Patient was attempting to avoid knocking the cat's food and water with her left hand. She denies pain in any other body part. She denies any LOC. She denies any neck or back or abdominal or pelvis pain. TRAVEL OUTSIDE OF THE [place] IN LAST 30 DAYS: No - HPI Injury to: Wrist Onset: Just prior to arrival Where: Home Timing: Constant Quality of pain: Achy Severity: Moderate Pain Level: 3 - Related Data Allergies/Adverse Reactions: aspirin Adverse Reaction (Verified 04/01/20 11:52) Past Medical History - General Information source: Patient - Social History Smoking Status: Never Smoker Cigarette use (# per day): No Chew tobacco use (# tins/day): No Smoking Education Provided: No Frequency of alcohol use: None Drug Abuse: None Lives with: Family Family History: Reviewed & Not Pertinent, Other - She reports mother and sister both had history of heavy vaginal bleeding similar to hers which ultimately resulted in hysterectomies Patient has suicidal ideation: No Patient has homicidal ideation: No Pulmonary Medical History: Denies: Hx Asthma Renal/ Medical History: Denies: Hx Peritoneal Dialysis Psychiatric Medical History: Denies: Hx Depression Past Surgical History: Reports: Hx Section, Hx Gynecologic Surgery - d&c, Hx Tubal Ligation - Immunizations Hx Diphtheria, Pertussis, Tetanus Vaccination: Yes Review of Systems - Review of Systems Constitutional: No symptoms reported EENT: No symptoms reported Cardiovascular: No symptoms reported Respiratory: No symptoms reported Gastrointestinal: No symptoms reported Genitourinary: No symptoms reported Female Genitourinary: No symptoms reported Musculoskeletal: See HPI, Joint pain, Joint swelling, Deformity Skin: No symptoms reported Hematologic/Lymphatic: No symptoms reported Neurological/Psychological: No symptoms reported Physical Exam - Vital signs Vitals: Temp Pulse Resp BP Pulse Ox 98.0 F 65 18 109/63 100 04/01/20 11:49 04/01/20 11:49 04/01/20 11:49 04/01/20 11:49 04/01/20 11:49 Interpretation: Normal - HEENT Head: Normocephalic, Atraumatic Eyes: Normal Pupils: PERRL Pharynx: Normal Neck: Normal - Respiratory Respiratory status: No respiratory distress Chest status: Nontender Breath sounds: Normal Chest palpation: Normal - Cardiovascular Rhythm: Regular Heart sounds: Normal auscultation Murmur: No - Abdominal Inspection: Normal Distension: No distension Bowel sounds: Normal Tenderness: Nontender Organomegaly: No organomegaly - Rectal Hemorrhoids: Other - deferred - Genitourinary Bimanuel exam: Other - deferred - Back Back: Normal - Extremities General upper extremity: Tender - distal r wrist closed wrist fx with pain to ext elbow General lower extremity: Normal inspection - Neurological Neuro grossly intact: Yes Cognition: Normal Orientation: AAOx4 Neli Coma Scale Eye Opening: Spontaneous Neli Coma Scale Verbal: Oriented Neli Coma Scale Motor: Obeys Commands Neli Coma Scale Total: 15 Speech: Normal Motor strength normal: LUE, RUE - except deformity, LLE, RLE Sensory: Normal - Psychological Associated symptoms: Normal affect - Skin Skin Temperature: Warm Skin Moisture: Dry Course - Vital Signs Vital signs: Temp Pulse Resp BP Pulse Ox 98.0 F 43 L 15 92/52 L 100 04/01/20 11:49 04/01/20 14:06 04/01/20 14:15 04/01/20 14:15 04/01/20 14:15 Procedures - Joint Reduction/Fracture Care Right Volar Wrist Time completed: 14:26 Consent obtained: Yes Conscious sedation: Yes Pre-procedure NV exam: Yes Fracture: Closed Post-procedure NV exam: Yes Post-reduction x-ray: Joint reduced Reduction attempts: 1 Complications: No Notes: 04/01/20 14:26 Patient to be seen by Dr. Atwood on Thursday and to keep her right upper extremity immobile and OCL and sling. Critical Care Note - Critical Care Note Comments: I discussed this case with Dr. Jerry Atwood x2 shortly after patient arrival and also around 1300 and he advises he will see this patient in office on Thursday Discharge - Discharge Clinical Impression: Wrist fracture, right Qualifiers: Encounter type: initial encounter Fracture type: closed Qualified Code(s): S62.101A - Fracture of unspecified carpal bone, right wrist, initial encounter for closed fracture Condition: Good Disposition: HOME, SELF-CARE Additional Instructions: Follow-up with Dr. Jerry Atwood at [facility] surgery. RICE that is rest ice compression elevation and take medicines for pain as directed and needed. Prescriptions: Ibuprofen [Motrin 800 mg Tablet] 800 mg PO BID #30 tab Oxycodone HCl/Acetaminophen [Percocet 5-325 mg Tablet] 1 tab PO BID #10 tablet Referrals: FAHAD ATWOOD JR, DO [ACTIVE PROVISIONAL STAFF] - Follow up as needed
--- NOTE | 2020-04-01 12:17 | RADIOLOGY REPORT (SQ) ---
EXAM DESCRIPTION: WRIST RIGHT 3 VIEWS IMAGES COMPLETED DATE/TIME: 04/01/2020 12:05 pm REASON FOR STUDY: Pain swelling deformity COMPARISON: None. NUMBER OF VIEWS: Three views. TECHNIQUE: AP, lateral, and oblique radiographic images acquired of the right wrist. LIMITATIONS: None. FINDINGS: MINERALIZATION: Osteopenia BONES: There is a comminuted fracture of the distal radial metaphysis with dorsal angulation of the d ominant distal fracture fragment. SOFT TISSUES: Circumferential soft tissue swelling is demonstrated. OTHER: No other significant finding. IMPRESSION: Comminuted fracture of the distal radial metaphysis without discrete intra-articular ext ension. TECHNICAL DOCUMENTATION: JOB ID: [id number] 2010 [employer]- All Rights Reserved Reading location - IP/workstation name: [email or web address]
[2020-04-01] MEDS ORDERED: MORPHINE SULFATE 10 MG/ML INJ IV ONE (12:28)
[2020-04-01] MEDS ORDERED: ONDANSETRON HCL INJ/PF 4 MG/2 ML SDV IV ONE (12:28)
[2020-04-01] MEDS ORDERED: PROPOFOL INJ 200 MG/20 ML VIAL IV ONE ×2 (12:43→13:46)
[2020-04-01] MEDS ORDERED: KETAMINE HCL INJ 500 MG/10 ML VIAL IV ONE (12:44)
--- NOTE | 2020-04-01 13:52 | RADIOLOGY REPORT (SQ) ---
EXAM DESCRIPTION: FOREARM RIGHT IMAGES COMPLETED DATE/TIME: 04/01/2020 1:16 pm REASON FOR STUDY: fx wrist with elbow pain COMPARISON: Earlier wrist radiograph NUMBER OF VIEWS: Two views. TECHNIQUE: Two radiographic images acquired of the right forearm, including elbow and wrist in at le ast one projection. LIMITATIONS: None. FINDINGS: MINERALIZATION: Normal. BONES: Comminuted distal radial fracture. No elbow fracture or effusion. SOFT TISSUES: No obvious swelling or foreign body. OTHER: No other significant finding. IMPRESSION: Comminuted distal radial fracture. No elbow fracture or effusion. TECHNICAL DOCUMENTATION: JOB ID: [id number] 2010 [employer]- All Rights Reserved Reading location - IP/workstation name: [email or web address]
[2020-04-01 14:37] VITALS: BP 94/56
--- NOTE | 2020-04-01 15:17 | RADIOLOGY REPORT (SQ) ---
EXAM DESCRIPTION: WRIST RIGHT 2 VIEWS IMAGES COMPLETED DATE/TIME: 04/01/2020 2:35 pm REASON FOR STUDY: post reduction COMPARISON: 04/01/2020 NUMBER OF VIEWS: Two view TECHNIQUE: AP and lateral radiographic images acquired of the right wrist. LIMITATIONS: None. FINDINGS: MINERALIZATION: Normal. BONES: The patient is status post close reduction of a previously demonstrated comminuted fracture of the distal radial metaphysis. SOFT TISSUES: No soft tissue swelling. No foreign body. OTHER: No other significant finding. IMPRESSION: Status post close reduction of a comminuted fracture of the distal radius. TECHNICAL DOCUMENTATION: JOB ID: [id number] 2010 [employer]- All Rights Reserved Reading location - IP/workstation name: [email or web address]
== END 2020-04-01 14:44 | disposition home or self-care (01) ==
LOC: ER 11:43
PROC: 0PSMXZZ Reposition Right Carpal, External Approach (ICD-10-PCS; principal; 2020-04-01)
DX: S62.101A Fracture of unspecified carpal bone, right wrist, initial encounter for closed fracture (principal); W01.0XXA Fall on same level from slipping, tripping and stumbling without subsequent striking against object, initial encounter; Z88.8 Allergy status to other drugs, medicaments and biological substances
CPT/HCPCS: 25635; 99284; 96374; 96375; 73090; 73100; 73110; J2270; J2405

== ENCOUNTER 2020-04-16 10:20 | Day surgery (SDC) | payer SELFPAY ==
[~2020-04-16 10:20] MED LIST: CEFAZOLIN 2 GM/D5W RTU 2 GM/50 ML RTUPB IV PRN; LIDOCAINE 2% INJ (20 MG/ML) 20 ML MDV ONE; ROPIVACAINE HCL 0.5% INJ/PF (5 MG/1 ML) 30 ML SDV ONE; SUCCINYLCHOLINE CHLORIDE INJ 200 MG/10 ML VIAL ONE
[2020-04-16] MEDS ORDERED: CEFAZOLIN 2 GM/D5W RTU 2 GM/50 ML RTUPB IV ONE (10:46)
[2020-04-16 11:03] LABS: HEMATOCRIT 40.8 % (36.0-47.0); HEMOGLOBIN 13.7 g/dL (12.0-15.5); MEAN CORPUSCULAR HEMOGLOBIN 29.8 pg (27.0-33.4); MEAN CORPUSCULAR HGB CONC 33.6 g/dL (32.0-36.0); MEAN CORPUSCULAR VOLUME 89 fl (80-97); PLATELET COUNT 265 10^3/uL (150-450); WHITE BLOOD COUNT 8.1 10^3/uL (4.0-10.5)
[2020-04-16] MEDS ORDERED: ONDANSETRON HCL INJ/PF 4 MG/2 ML SDV ONE (12:45)
[2020-04-16] MEDS ORDERED: FENTANYL CITRATE INJ/PF 100 MCG/2 ML AMPUL ONE (12:45)
[2020-04-16] MEDS ORDERED: PROPOFOL INJ 200 MG/20 ML VIAL IV ONE (12:45)
[2020-04-16] MEDS ORDERED: MIDAZOLAM 2 MG/2 ML INJ ONE (12:45)
[2020-04-16] MEDS ORDERED: LIDOCAINE 1% INJ-PF (10 MG/ML) 30 ML SDV ONE (13:08)
[2020-04-16] MEDS ORDERED: BUPIVACAINE HCL 0.25 % INJ/PF (2.5 MG/1 ML) 30 ML VIAL ONE (13:08)
[2020-04-16] MEDS ORDERED: NORMAL SALINE 1000 ML 1,000 ML IV PRN (13:37)
[2020-04-16] MEDS ORDERED: ONDANSETRON 4 MG TAB.RAPDIS PO PRN (13:37)
[2020-04-16] MEDS ORDERED: MORPHINE SULFATE 10 MG/ML INJ IV PRN ×2 (13:37→14:08)
[2020-04-16] MEDS ORDERED: DIPHENHYDRAMINE HCL 25 MG CAPSULE PO PRN (13:37)
[2020-04-16] MEDS ORDERED: OXYCODONE HCL IR 5 MG TABLET PO PRN ×2 (13:37)
[2020-04-16] MEDS ORDERED: DEXAMETHASONE SOD PHOS INJ 10 MG/1 ML VIAL IV ONE (13:37)
[2020-04-16] MEDS ORDERED: PROMETHAZINE HCL INJ 25 MG/1 ML VIAL IV PRN (14:08)
[2020-04-16] MEDS ORDERED: DIPHENHYDRAMINE HCL 50 MG/ML VIAL IV PRN (14:08)
[2020-04-16] MEDS ORDERED: OXYCODONE-ACETAMINOPHEN 5-325 MG TABLET PO PRN ×2 (14:08)
[2020-04-16] MEDS ORDERED: MEPERIDINE HCL/PF INJ 25 MG/1 ML DISP.SYRIN IV PRN (14:08)
[2020-04-16] MEDS ORDERED: FENTANYL CITRATE INJ/PF 100 MCG/2 ML AMPUL IV PRN ×3 (14:08)
[2020-04-16] MEDS ORDERED: ONDANSETRON HCL INJ/PF 4 MG/2 ML SDV IV PRN (14:33)
--- NOTE | 2020-04-16 14:53 | Operative Report ---
Operative Report DATE OF SURGERY: 04/16/20 PREOPERATIVE DIAGNOSIS: Right distal radius extra-articular fracture. POSTOPERATIVE DIAGNOSIS: Right distal radius extra-articular fracture OPERATION: Right distal radius open reduction internal fixation SURGEON: FAHAD ATWOOD JR ANESTHESIA: GA COMPLICATIONS: None ESTIMATED BLOOD LOSS: 10 cc PROCEDURE: The patient was brought in the operating suite and laid supine on the operating table. Preoperatively there were given 2 g Ancef. They are placed under general anesthesia. After adequate anesthesia the right upper extremity was then prepped and draped in sterile sterile fashion. Appropriate timeout was performed. Following this the right upper extremities exsanguinated with Esmarch and then the tourniquet was inflated to 250 mmHg. A reduction maneuver was performed with the assistance of fluoroscopy and a 0.62 K wire was placed through the styloid process to hold the reduction. After this a volar approach to the distal radius was made using the FCR approach. The pronator quadratus was reflected off of the volar surface of the distal radius with a combination of Bovie cautery and julio elevator. The fracture was able to be appreciated and was already nearly keyed in place. A plate was selected and positioned onto the distal radius with the assistance of fluoroscopy to ensure appropriate plate position. After this a drill was used to place a single screw loosely in the oblong hole. Following this a distal screw was placed using a nonlocking screw. Again fluoroscopy was used to ensure appropriate alignment of the plate. We then filled the distal screws with a combination of locking screws and pegs. After this the oblong screw was used to reduce the proximal plate to bone and achieve further reduction and volar angulation of the distal radius fragment. Final screws were then placed and final fluoroscopy was taken. This ensured near-anatomic alignment on both AP and lateral views and no forceful screw prominence or penetration of the joint. Following this copious sterile saline was used to irrigate the wound and then the tourniquet was deflated. Any bleeding was cauterized, there was no pulsatile bleeding noted. 3-0 Monocryl was used in inverted interrupted fashion to close the subcutaneous tissue followed by a running 3 oh horizontal mattress nylon in the skin. Sterile dressing was then placed followed by a volar splint with a well molded plaster. Patient was then awakened from anesthesia and transferred the PACU in stable condition.
--- NOTE | 2020-04-16 15:04 | RADIOLOGY REPORT (SQ) ---
EXAM DESCRIPTION: WRIST RIGHT 2 VIEWS; NO CHG FLUORO IMAGES COMPLETED DATE/TIME: 04/16/2020 2:54 pm REASON FOR STUDY: ORIF RIGHT WRIST ASSISTED WITH FLUORO IN OR S52.531A COLLES' FRACTURE OF RIGHT RA DIUS, INIT FOR CLOS FX COMPARISON: None. FLUOROSCOPY TIME: 20 seconds Spot images saved to PACS. TECHNIQUE: Intra-operative images acquired during surgical procedure to evaluate progress. NUMBER OF IMAGES: 3 LIMITATIONS: None. FINDINGS: Fluoroscopy was provided for intraoperative procedure. Please refer to the operative repo rt for further discussion. IMPRESSION: IMAGE(S) OBTAINED DURING PROCEDURE. COMMENT: Quality ID [id number]: Final reports for procedures using fluoroscopy that document radiation exp osure indices, or exposure time and number of fluorographic images (if radiation exposure indices are not available) Please consult full operative report of the attending physician for description of the procedure. TECHNICAL DOCUMENTATION: JOB ID: [id number] 2010 [employer]- All Rights Reserved Reading location - IP/workstation name: [email or web address]
--- NOTE | 2020-04-16 15:04 | RADIOLOGY REPORT (SQ) ---
EXAM DESCRIPTION: WRIST RIGHT 2 VIEWS; NO CHG FLUORO IMAGES COMPLETED DATE/TIME: 04/16/2020 2:54 pm REASON FOR STUDY: ORIF RIGHT WRIST ASSISTED WITH FLUORO IN OR S52.531A COLLES' FRACTURE OF RIGHT RA DIUS, INIT FOR CLOS FX COMPARISON: None. FLUOROSCOPY TIME: 20 seconds Spot images saved to PACS. TECHNIQUE: Intra-operative images acquired during surgical procedure to evaluate progress. NUMBER OF IMAGES: 3 LIMITATIONS: None. FINDINGS: Fluoroscopy was provided for intraoperative procedure. Please refer to the operative repo rt for further discussion. IMPRESSION: IMAGE(S) OBTAINED DURING PROCEDURE. COMMENT: Quality ID [id number]: Final reports for procedures using fluoroscopy that document radiation exp osure indices, or exposure time and number of fluorographic images (if radiation exposure indices are not available) Please consult full operative report of the attending physician for description of the procedure. TECHNICAL DOCUMENTATION: JOB ID: [id number] 2010 [employer]- All Rights Reserved Reading location - IP/workstation name: [email or web address]
[2020-04-16 17:29] VITALS: BP 113/58
[2020-04-16] MEDS ORDERED: CEFAZOLIN 2 GM/D5W RTU 2 GM/50 ML RTUPB IV SCH (21:00)
--- NOTE | 2020-04-18 15:40 | Discharge Summary ---
Discharge Summary (SDC) - Discharge Final Diagnosis: Right distal radius extra-articular fracture Date of Surgery: 04/16/20 Discharge Date: 04/16/20 Condition: Stable Forms: ASU Anesthesia D/C Instruction, Discharge POC-Surgical Service Treatment or Instructions: Keep upper extremity elevated. May ice periodically for pain control. Nonweightbearing right upper extremity Encourage gentle range of motion of the fingers within splint, leave splint in place until seen in the office Pain control as prescribed Take vitamin C 500 twice daily x30 days Referrals: FAHAD ATWOOD JR, [ACTIVE PROVISIONAL STAFF] - (FOLLOW UP IN 10 DAYS- OFFICE SHOULD CALL YOU) Respiratory Treatments at Home: Deep Breathing/Coughing Discharge Activity: Activity As Tolerated, No Lifting Over 10 Pounds, No Lifting/Push/Pulling, Walk Frequently Home Care Assistance: None Needed Report the Following to Your Physician Immediately: Shortness of Breath, Increase in Pain, Fever over 101 Degrees, Unusual Bleeding, Swelling, Drainage- Foul Smelling, Numbness, Tingling Sensation
== END 2020-04-16 17:35 | disposition home or self-care (01) ==
LOC: OROUT 10:20
PROVIDERS: ATTEND Orthopaedic Surgery
DX: S52.551A Other extraarticular fracture of lower end of right radius, initial encounter for closed fracture (principal); W19.XXXA Unspecified fall, initial encounter; Z03.818 Encounter for observation for suspected exposure to other biological agents ruled out
CPT/HCPCS: 25607; 36415; 85027; 87635; 81025; 73100; 01830; C1713 ×7; J2795; J2250; J3490; J3010; J0330; J2405; J2704; J0690; C9803